=== PATIENT | female | born 1980 | race Caucasian/White ===

== ENCOUNTER 2016-10-04 20:45 | Emergency (ER) | payer OTHER ==
--- NOTE | ~2016-10-04 | CT71 ---
[facility] A Service of [facility] RADIOLOGY TEXT RESULTS PATIENT: CARRILLO KIM LOCATION: ANDRE : [birth year] UNIT #: [id number] AGE: [address]: Da Chambers MD SEX: F ORDER DR: [id number] [facility] [address] [place], [place] [address] [id number] MR#: [id number] Acc #: [id number] NAME: CARRILLO KIM. : 1980 SEX: F STUDY DATE/TIME: 10/04/2016 23:28 UNIT: ANDRE ROOM: STUDY DESCRIPTION: CT Head Wo Contrast Attending Physician: Da Chambers M.D. Ordering Physician: Da Chambers M.D. Primary Care Physician: Hever Patel A.P.R.N. MEDICAL IMAGING REPORT This report is preliminary unless electronic signature is present EXAM CT head without contrast INDICATION Headache, nausea, dizziness and confusion for the past [address] head. This CT exam was performed with one or more of the following radiation dose reduction techniques: automatic exposure control, adjustment of mA and/or kV according to patient size, and iterative reconstruction. COMPARISON 12/13/2014 FINDINGS No hemorrhage or extraaxial fluid collection. No convincing evidence for acute or early subacute large territory infarct. There is a left transparietal ventriculostomy catheter in place. It terminates in the right frontal lobe. The right lateral ventricle is completely decompressed and there is mild shift to the right. No calvarial fracture. Paranasal sinuses and mastoid air cells clear. IMPRESSION 1. Left transparietal ventriculostomy catheter terminates in the right frontal lobe. Complete decompression of the right lateral ventricle, with minimal shift towards the right. Midline shift is approximately 3 mm. 2. No hemorrhage. Dictated by... [facility] A Service of [facility] RADIOLOGY TEXT RESULTS PATIENT: CARRILLO KIM LOCATION: NADRE : 80 UNIT #: [id number] AGE: [address]: Da Chambers MD SEX: F ORDER DR: Carlton Hernandez M.D. THIS IS AN ELECTRONICALLY VERIFIED REPORT Carlton Hernandez M.D. at 10/05/2016 10:26 PM ANDREEA/aura TD: 10/05/2016 01:30 JOB #: [id number] MEDICAL IMAGING REPORT Page 1 of 1 COPY
--- NOTE | ~2016-10-04 | CR231 ---
[facility] A Service of [facility] RADIOLOGY TEXT RESULTS PATIENT: CARRILLO KIM LOCATION: ANDRE : [birth year] UNIT #: [id number] AGE: [address]: Da Chambers MD SEX: F ORDER DR: [id number] [facility] [address] [place], [place] [address] [id number] E MR#: [id number] Acc #: [id number] NAME: CARRILLO ISAAC. : 1980 SEX: F STUDY DATE/TIME: 10/04/2016 22:03 UNIT: ANDRE ROOM: STUDY DESCRIPTION: CR Shunt Series Attending Physician: Da Chambers M.D. Ordering Physician: Da Chambers M.D. Primary Care Physician: Hever Patel A.P.R.N. MEDICAL IMAGING REPORT This report is preliminary unless electronic signature is present EXAM Shunt series DATE 10/04/2016 HISTORY Headache and blurred vision with nausea and dizziness for 3 days. COMPARISON Shunt series 12/13/2014. FINDINGS Left parietal-approach ventriculostomy catheter extends across the left side of the neck, left upper chest, extends over the anterior mediastinum where it is not visible on the AP image, extends into the right upper quadrant of the abdomen where the tip terminates. In the visualized extent, it appears contiguous, but again, it is not well visualized over the mediastinal region of the chest. What appears to be an abandoned tube or catheter projects over the left mid abdomen. No acute findings are seen within the chest or abdomen. IMPRESSION 1. Left parietal-approach ventriculostomy catheter extends into the right upper quadrant of the abdomen. The catheter is not satisfactorily visualized, as it overlaps the mediastinum on the frontal chest radiograph. To the extent that it can be seen, it appears contiguous. 2. No acute findings within the chest or abdomen. Dictated by... [facility] A Service of [facility] RADIOLOGY TEXT RESULTS PATIENT: CARRILLO KIM LOCATION: ANDRE : [birth year] UNIT #: [id number] AGE: [address]: Da Chambers MD SEX: F ORDER DR: Meka Diaz M.D. THIS IS AN ELECTRONICALLY VERIFIED REPORT Meka Diaz M.D. at 10/05/2016 10:03 AM RACHEL/oscar TD: 10/04/2016 23:59 JOB #: [id number] MEDICAL IMAGING REPORT Page 1 of 1 COPY
--- NOTE | ~2016-10-04 | ER ---
Unit #: [id number] #: [id number] Patient: CARRILLO KIM [id number] [address] [place], [place] [address] [id number] E MR#: [id number] NAME: CARRILLO KIM ROOM: Sex: F Age: : 1980 Service Date: 10/04/2016 Attending Physician: Da Chambers M.D. Primary Care Physician: Hever Patel A.P.R.N. EMERGENCY DEPT PHYSICIAN NOTE Please see the written T-sheet for the full details of the encounter. Ms. Suazo is a 36-year-old woman who [facility] with a chief complaint of headache which she rated as more severe than her typical migraine. Ms. Suazo is a woman who suffered from migraines for many years and has had a history of pseudotumor cerebri requiring SOLDERER FURNACE shunts in the past. Her most recent revision to her shunt was done in May of 2016, by Dr. Felix Osuna. The patient stated that, in addition to having a diffuse headache, she was also complaining of a visual disturbance in her left eye which was new and different from her previous headache. I enquired if the patient had attempted her home medications, which are numerous, to attempt to control her migraine, she reported that she had but stated that she was unable to get any relief at home. A complete physical and neurological exam was conducted which revealed no acute or concerning abnormalities, specifically, no focal neuro deficits were appreciated on exam. Pupillary response was normal. The patient, of note, although complaining of a severe headache and photophobia, was listening to music and resting comfortably in a fully lit room when I entered. The patient stated repeatedly that she was concerned that her SOLDERER FURNACE shunt was malfunctioning and essentially requested that I perform a head CT and shunt series to ensure proper function. I explained that I would give her medicines appropriate for her headache to try to gain better control. After leaving the room, [facility] was contacted for records. Records from [facility] were obtained showing the most recent operative report from April of 2016, in which Dr. Osuna replaced the SOLDERER FURNACE shunt without any evidence of complication. Additionally, records were requested from the patient's most recent ER visit. This visit was on the evening of 09/25/2016. At that time, the patient complained of a very similar headache that had been present for the last eight days and she, at that time, was also complaining of photophobia and seeing white spots in her left visual field. This note makes mention that the patient had ceased her relationship with Dr. Osuna which she did inform me of that as well. Additionally, the note states that she had seen Dr. Fox, a local neurologist who specializes in migraines, and had been given Botox injections without relief. At that time, the patient had a head CT which was normal as well as a normal shunt series. After medications were administered, the patient stated that she had appropriate relief of her headache and was discharged home with the recommendation that she follow up with a local neurologist. The results of the patient's head CT and shunt series will be reviewed Unit #: [id number] #: [id number] Patient: CARRILLO KIM when they are available and she will be re-evaluated for appropriate pain relief. I will discuss with the patient the necessity to disclose recent visits to other hospitals, especially if she has received CAT scans recently, to minimize the patient's radiation exposure and potential risk from repeated studies that may be performed unnecessarily. She will be encouraged to follow up with the neurologist that was listed on her recent visit to [facility] emergency department. Dictated by... Luz Ulloa/kristy TD: 10/05/2016 08:00 JOB #: [id number] EMERGENCY DEPT PHYSICIAN NOTE Page 1 of 1 X Da Chambers MD EMERGENCY DEPARTMENT REPORT
[~2016-10-04 20:45] MED LIST: ACETAMINOPHEN650 M1 PO; ALBUTEROL17 GM INH; BACTRIM DS TABL1 TAB PO; CARVEDILOL25 MG PO; CIPRO PO; COMBIVENT14.7 GM INH; CYMBALTA PO; DIAZEPAM PO; DILAUDID4 MG DOB; DILAUDID4 MG PO; EXCEDRIN MIGRAI1 TA1; FIORICET 50-321 EACH PO; FLAGYL250 MG PO; FLEXERIL PO; FLEXERIL10 MG PO; FLORASTOR250 M1 PO; FLUOXETINE HCL10 M1 PO; GABAPENTIN600 MG PO; HYDRALAZINE HCL50 MG PO; HYDROCODONE/APA1 T16 PO; IMITREX5 MG INJ; KEFLEX500 MG PO; LEVAQUIN PO; LEVOTHYROXINE50 MCG PO; LEXAPRO20 MG PO; LOMOTIL TABLET1 TAB PO; LOMOTIL WHITE2.5 M1 PO; LORTAB 10-5001 EACH PO; LORTAB 5/500 TA1 TA1 PO; LORTAB 7.5-5001 TAB PO; MACROBID 100 M100 MG PO; MACROBID100 MG PO; MEDROL; METRONIDAZOLE PO; MONTELUKAST SOD10 MG PO; NEURONTIN100 MG PO; NEURONTIN300 MG PO; OXYCODONE HCL30 MG PO; PERCOCET 10/6501 TA1 PO; PHENERGAN PO; PHENERGAN12.5 MG/SU RC; PHENERGAN25 M1 PO; PHENERGAN25 MG PO; PROTONIX PO; REGLAN; ROXICET 5-325 T1 TAB; ROXICODONE30 M1 PO; TOPAMAX PO; VANCOMYCIN250 MG/5 M PO; VICODIN PO; XANAX1 MG PO; ZOFRAN ODT4 MG PO; ZOFRAN PO; ZYLOPRIM100 MG PO; [UNRECOGNIZED DRUG - OTHER]
== END 2016-10-05 00:47 | disposition home or self-care (01) ==
LOC: CED 20:45
DX: R51 Headache (principal); K21.9 Gastro-esophageal reflux disease without esophagitis; Z88.5 Allergy status to narcotic agent; Z88.8 Allergy status to other drugs, medicaments and biological substances; Z88.2 Allergy status to sulfonamides
CPT/HCPCS: 70450; 75809; 84703; 96361; 96374; 96375; 99285; J0780; J1885; J2060